=== PATIENT | male | born 1990 | race Caucasian/White ===

== ENCOUNTER 2021-12-08 07:22 | Day surgery (SDC) | payer OTHER ==
[~2021-12-08] VITALS: Ht 180.3 cm; Wt 77.0 kg
[2021-12-08 08:15] VITALS: BP 123/61; PULSE 53; TEMP 98.2
[2021-12-08] MEDS ORDERED: NORCO 325 MG-51 TAB PO (10:55)
[2021-12-08 11:55] VITALS: BP 120/64; PULSE 60; TEMP 97.4
--- NOTE | 2021-12-08 11:55 | NUR ---
PT TO BAY 1 PER CART FROM PACU. REPORT RECEIVED. CALL LIGHT WITHIN REACH. PT DENIES ANY NEEDS AT THIS TIME.
[2021-12-08 12:10] VITALS: BP 113/58; PULSE 50
[2021-12-08 12:25] VITALS: BP 105/59; PULSE 51
--- NOTE | 2021-12-08 12:25 | NUR ---
PT TOLERATING JUICE AND PUDDING. DENIES ANY OTHER NEEDS.
[2021-12-08 12:40] VITALS: BP 106/69; PULSE 58
--- NOTE | 2021-12-08 13:10 | NUR ---
1245-IV DC'D AT THIS TIME. 1300-DISCHARGE EDUCATION COMPLETED WITH PT AND HIS . VERBALIZED UNDERSTANDING OF HOME AND FOLLOW UP CARE. ALL QUESTIONS ANSWERED. DISCHARGE PAPERWORK GIVEN TO PT. 1310-PT OFF UNIT PER WHEELCHAIR. PT DISCHARGED TO HOME WITH PER PERSONAL VEHICLE.
== END 2021-12-08 13:10 | disposition home or self-care (01) ==
LOC: SDCO 07:22
DX: K40.90 Unilateral inguinal hernia, without obstruction or gangrene, not specified as recurrent (principal)
CPT/HCPCS: C1781; J0690; J1100; J1885; J2405; J2704; J3010; J7120